=== PATIENT | female | born 1935 | race Caucasian/White ===

== ENCOUNTER 2017-08-22 13:19 | Inpatient (IN) | payer OTHER ==
[~2017-08-22] VITALS: Ht 170.2 cm; Wt 65.7 kg
[2017-08-22 16:20] LABS: BASOPHIL (%) 0.3 % (0-1); BASOPHIL COUNT 0.1 K/uL (0-0.1); EOSINOPHIL (%) 0.2 % (0-5); HEMATOCRIT 34.3 % (36.0-46.0); HEMOGLOBIN 11.2 G/DL (11.9-15.5); IMMATURE GRANULOCYTE (%) 1.2 % (0.0-0.7); LYMPHOCYTE (%) 6.4 % (15-42); LYMPHOCYTE COUNT 0.9 K/uL (1.0-2.8); MCH 29.9 PG (29.0-34.0); MCHC 32.7 G/DL (30.0-36.0); MCV 91.5 FL (83-99); MONOCYTE COUNT 0.9 K/uL (0-0.8); NEUTROPHIL (%) 85.9 % (45-76); NEUTROPHIL COUNT 12.6 K/uL (1.8-6.4); PLATELET COUNT 381 K/uL (156-360); RBC DIS.WIDTH-CV 13.2 % (11.8-14.6); RBC DIS.WIDTH-SD 45.1 % (39-53); RED BLOOD COUNT 3.75 M/uL (3.80-5.20); WHITE BLOOD COUNT 14.6 K/uL (4.1-10.2)
[2017-08-22 16:34] LABS: ALBUMIN 2.3 g/dL (3.2-4.8); CHLORIDE 102 mEq/L (99-109); POTASSIUM 4.1 mEq/L (3.7-5.4); SODIUM 136 mEq/L (136-147)
[2017-08-22 16:35] LABS: MAGNESIUM 1.9 mg/dL (1.3-2.7)
[2017-08-22 16:36] LABS: GLUCOSE 110 mg/dL (70-99); TOTAL PROTEIN 5.8 g/dL (6.4-8.3)
[2017-08-22 16:38] LABS: TOTAL BILIRUBIN 0.4 mg/dL (0.0-1.0)
[2017-08-22 16:40] LABS: ALKALINE PHOSPHATASE 83 IU/L (3-129); CREATININE 0.6 mg/dL (0.6-1.3); GFR ESTIMATE (CALCULATED) > 59 mL/min/
[2017-08-22 16:41] LABS: UREA NITROGEN (BUN) 14 mg/dL (9-23)
[2017-08-22 16:42] LABS: AST (GOT) 53 IU/L (2-34)
[2017-08-22 16:43] LABS: ALT (GPT) 25 IU/L (3-49); TROP-I INTERPRETATION NEGATIVE; TROPONIN-I < 0.01 ng/mL (0.0-0.30)
[2017-08-22 16:48] LABS: CK-MB 0.8 ng/mL (0.0-4.9)
[2017-08-22 17:00] LABS: APPEARANCE SL.HAZY ((CLEAR)); BILIRUBIN NEGATIVE; BLOOD SMALL; COLOR YELLOW ((YELLOW)); GLUCOSE (STRIP) NEGATIVE; KETONES NEGATIVE; LEUKOCYTES NEGATIVE; NITRITE NEGATIVE; PROTEIN (STRIP) NEGATIVE
[2017-08-22 17:20] LABS: EPITHELIAL CELLS RARE /HPF; RED BLOOD CELLS 20-30 /HPF (0-5); WHITE BLOOD CELLS TNTC /HPF (0-5)
[2017-08-22 17:21] LABS: BACTERIA 3+ /HPF; MUCUS NONE SEEN /LPF; UCUL ADDED? YES
[2017-08-22 17:25] LABS: CREATINE KINASE 22 IU/L (1-294)
[2017-08-22 17:28] LABS: CKMB RELATIVE INDEX 3.6 (0.0-3.9); TOTAL CK 22 IU/L (1-294)
[2017-08-22] MEDS ORDERED: EXCEDRIN EXTRA1 EACH PO (17:48)
[2017-08-22 18:25] LABS: INTER. NORMALIZED RATIO 1.2
[2017-08-22 18:27] LABS: PTT 27.2 SEC (25-37)
[2017-08-22 22:09] VITALS: BP 146/65
[2017-08-22 22:15] VITALS: BP 134/64
[2017-08-23 00:18] VITALS: BP 135/72
[2017-08-23 07:15] VITALS: BP 111/55
[2017-08-23 16:10] VITALS: BP 112/54
[2017-08-24 00:54] VITALS: BP 118/58
[2017-08-24 07:17] VITALS: BP 131/60
[2017-08-24 15:15] VITALS: BP 115/57
[2017-08-24 23:14] VITALS: BP 124/58
[2017-08-25 07:04] VITALS: BP 140/62
[2017-08-25 13:23] LABS: HEMATOCRIT 35.7 % (36.0-46.0); HEMOGLOBIN 11.7 G/DL (11.9-15.5); MCH 29.9 PG (29.0-34.0); MCHC 32.8 G/DL (30.0-36.0); MCV 91.3 FL (83-99); PLATELET COUNT 424 K/uL (156-360); RBC DIS.WIDTH-CV 13.6 % (11.8-14.6); RBC DIS.WIDTH-SD 45.8 % (39-53); RED BLOOD COUNT 3.91 M/uL (3.80-5.20); WHITE BLOOD COUNT 16.8 K/uL (4.1-10.2)
[2017-08-25 14:24] LABS: CHLORIDE 102 MEQ/L (99-109); CREATININE 0.6 MG/DL (0.6-1.3); GFR ESTIMATE (CALCULATED) > 59 mL/min/; GLUCOSE 134 mg/dL (70-99); POTASSIUM 3.5 MEQ/L (3.7-5.4); SODIUM 137 MEQ/L (136-147); UREA NITROGEN (BUN) 14 mg/dL (9-23)
[2017-08-25 15:29] VITALS: BP 108/55
[2017-08-25 23:55] VITALS: BP 135/62
[2017-08-26 06:15] LABS: HEMATOCRIT 34.1 % (36.0-46.0); MCH 29.3 PG (29.0-34.0); MCHC 32.3 G/DL (30.0-36.0); MCV 90.7 FL (83-99); PLATELET COUNT 379 K/uL (156-360); RBC DIS.WIDTH-CV 13.8 % (11.8-14.6); RED BLOOD COUNT 3.76 M/uL (3.80-5.20)
[2017-08-26 06:44] LABS: CHLORIDE 104 MEQ/L (99-109); CREATININE 0.5 MG/DL (0.6-1.3); GFR ESTIMATE (CALCULATED) > 59 mL/min/; GLUCOSE 106 mg/dL (70-99); SODIUM 139 MEQ/L (136-147); UREA NITROGEN (BUN) 15 mg/dL (9-23)
[2017-08-26 07:35] VITALS: BP 134/62
[2017-08-26 15:40] VITALS: BP 116/57
[2017-08-27 00:53] VITALS: BP 131/60
[2017-08-27 07:05] VITALS: BP 107/56
[2017-08-27 07:15] LABS: CHLORIDE 104 MEQ/L (99-109); CREATININE 0.5 MG/DL (0.6-1.3); GFR ESTIMATE (CALCULATED) > 59 mL/min/; GLUCOSE 105 mg/dL (70-99); SODIUM 141 MEQ/L (136-147); UREA NITROGEN (BUN) 14 mg/dL (9-23)
[2017-08-27 07:24] LABS: BASOPHIL (%) 0.4 % (0-1); BASOPHIL COUNT 0.1 K/uL (0-0.1); EOSINOPHIL (%) 0.3 % (0-5); HEMATOCRIT 33.1 % (36.0-46.0); HEMOGLOBIN 10.7 G/DL (11.9-15.5); IMMATURE GRANULOCYTE (%) 1.2 % (0.0-0.7); LYMPHOCYTE COUNT 1.2 K/uL (1.0-2.8); MCH 29.6 PG (29.0-34.0); MCHC 32.3 G/DL (30.0-36.0); MCV 91.7 FL (83-99); MONOCYTE (%) 6.2 % (3-12); MONOCYTE COUNT 0.9 K/uL (0-0.8); NEUTROPHIL (%) 83.9 % (45-76); NEUTROPHIL COUNT 12.3 K/uL (1.8-6.4); PLATELET COUNT 384 K/uL (156-360); RBC DIS.WIDTH-CV 13.6 % (11.8-14.6); RBC DIS.WIDTH-SD 46.2 % (39-53); RED BLOOD COUNT 3.61 M/uL (3.80-5.20); WHITE BLOOD COUNT 14.7 K/uL (4.1-10.2)
[2017-08-27] MEDS ORDERED: DOCUSATE SODIU100 MG PO (13:08)
[2017-08-27] MEDS ORDERED: LEVOFLOXACIN500 MG PO (13:08)
[2017-08-27 15:07] VITALS: BP 116/54
[2017-08-27 16:08] VITALS: BP 116/54
[2017-08-28] MEDS ORDERED: ATROVENT 00.5 MG/2.5 IH (10:50)
[2017-08-28] MEDS ORDERED: PREDNISONE20 MG PO (10:51)
[2017-08-28] MEDS ORDERED: LEVAQUIN500 MG PO (10:51)
== END 2017-08-27 16:25 | DRG 179 ==
LOC: EME 13:19 → 5EAST 19:45 → EDOF 19:45 → ENRESERV 19:46 → 5EAST 21:52
PROVIDERS: Emergency Medicine; Hospitalist; Physician Assistant
DX: J69.0 Pneumonitis due to inhalation of food and vomit (principal); N30.91 Cystitis, unspecified with hematuria; B95.4 Other streptococcus as the cause of diseases classified elsewhere; F01.50 Vascular dementia, unspecified severity, without behavioral disturbance, psychotic disturbance, mood disturbance, and anxiety; K59.00 Constipation, unspecified; Z66 Do not resuscitate
CPT/HCPCS: 70450; 71045; 72070; 72100; 72170; 80048; 80053; 81003; 82550; 82553; 83605; 83735; 84484; 85025; 85027; 85610; 85730; 87040; 87077; 87086; 92526 GN; 92610 GN; 93005; 97530 GO; 99281; 99285; G0515 GP; J0295; J1644; J1956; J7030; J7040; J7050

== ENCOUNTER 2017-08-28 07:47 | Inpatient (IN) | payer OTHER ==
[~2017-08-28] VITALS: Ht 162.6 cm; Wt 77.0 kg
[2017-08-28] VITALS (11 sets, daily range): BP systolic 101–132; BP diastolic 43–67
[~2017-08-28 07:47] MED LIST: DOCUSATE SODIU100 MG PO; EXCEDRIN EXTRA1 EACH PO; LEVOFLOXACIN500 MG PO
[2017-08-28 08:49] LABS: BASOPHIL (%) 0.2 % (0-1); EOSINOPHIL (%) 0 % (0-5); HEMATOCRIT 37.8 % (36.0-46.0); HEMOGLOBIN 12.1 G/DL (11.9-15.5); IMMATURE GRANULOCYTE (%) 1.8 % (0.0-0.7); LYMPHOCYTE (%) 4.5 % (15-42); LYMPHOCYTE COUNT 0.8 K/uL (1.0-2.8); MCH 29.7 PG (29.0-34.0); MCV 92.9 FL (83-99); MONOCYTE (%) 5.8 % (3-12); NEUTROPHIL (%) 87.7 % (45-76); NEUTROPHIL COUNT 15.7 K/uL (1.8-6.4); PLATELET COUNT 406 K/uL (156-360); RBC DIS.WIDTH-CV 13.8 % (11.8-14.6); RED BLOOD COUNT 4.07 M/uL (3.80-5.20); WHITE BLOOD COUNT 17.9 K/uL (4.1-10.2)
[2017-08-28 08:56] LABS: ALBUMIN 2.2 g/dL (3.2-4.8)
[2017-08-28 08:57] LABS: CHLORIDE 106 mEq/L (99-109); POTASSIUM 3.8 mEq/L (3.7-5.4); SODIUM 142 mEq/L (136-147)
[2017-08-28 08:59] LABS: GLUCOSE 152 mg/dL (70-99); TOTAL PROTEIN 5.7 g/dL (6.4-8.3)
[2017-08-28 09:02] LABS: ALKALINE PHOSPHATASE 91 IU/L (3-129)
[2017-08-28 09:03] LABS: CREATININE 0.7 mg/dL (0.6-1.3); GFR ESTIMATE (CALCULATED) > 59 mL/min/
[2017-08-28 09:04] LABS: AST (GOT) 51 IU/L (2-34); TOTAL BILIRUBIN 0.7 mg/dL (0.0-1.0); UREA NITROGEN (BUN) 17 mg/dL (9-23)
[2017-08-28 09:05] LABS: ALT (GPT) 28 IU/L (3-49)
[2017-08-28 09:09] LABS: TROP-I INTERPRETATION NEGATIVE
[2017-08-28 09:23] LABS: APPEARANCE CLOUDY ((CLEAR)); BILIRUBIN NEGATIVE; BLOOD MODERATE; COLOR AMBER ((YELLOW)); GLUCOSE (STRIP) NEGATIVE; KETONES NEGATIVE; LEUKOCYTES NEGATIVE; NITRITE NEGATIVE; PROTEIN (STRIP) 30; SPECIFIC GRAVITY 1.025 (1.000-1.030)
[2017-08-28 09:41] LABS: RED BLOOD CELLS 20-30 /HPF (0-5)
[2017-08-28 09:43] LABS: BACTERIA 2+ /HPF; EPITHELIAL CELLS 2+ /HPF; MUCUS NONE SEEN /LPF; UCUL ADDED? YES; WHITE BLOOD CELLS 0-5 /HPF (0-5)
[2017-08-28] MEDS ORDERED: ATROVENT 00.5 MG/2.5 IH (10:50)
[2017-08-28] MEDS ORDERED: PREDNISONE20 MG PO (10:51)
[2017-08-28] MEDS ORDERED: LEVAQUIN500 MG PO (10:51)
[2017-08-28 15:17] LABS: TROP-I INTERPRETATION INDETERMINATE; TROPONIN-I 0.47 ng/mL (0.0-0.30)
[2017-08-29] VITALS (15 sets, daily range): BP systolic 88–128; BP diastolic 37–72
[2017-08-29 05:47] LABS: BASOPHIL (%) 0.2 % (0-1); BASOPHIL COUNT 0.1 K/uL (0-0.1); EOSINOPHIL (%) 0 % (0-5); HEMATOCRIT 29.3 % (36.0-46.0); IMMATURE GRANULOCYTE (%) 1.1 % (0.0-0.7); LYMPHOCYTE (%) 6.4 % (15-42); LYMPHOCYTE COUNT 1.4 K/uL (1.0-2.8); MCH 29.2 PG (29.0-34.0); MCHC 31.7 G/DL (30.0-36.0); MCV 92.1 FL (83-99); MONOCYTE (%) 4.4 % (3-12); NEUTROPHIL (%) 87.9 % (45-76); NEUTROPHIL COUNT 19.5 K/uL (1.8-6.4); PLATELET COUNT 331 K/uL (156-360); RBC DIS.WIDTH-SD 47.4 % (39-53); WHITE BLOOD COUNT 22.2 K/uL (4.1-10.2)
[2017-08-29 05:49] LABS: HEMOGLOBIN 9.3 G/DL (11.9-15.5); RED BLOOD COUNT 3.18 M/uL (3.80-5.20)
[2017-08-29 06:14] LABS: CHLORIDE 110 MEQ/L (99-109); CREATININE 0.5 MG/DL (0.6-1.3); GFR ESTIMATE (CALCULATED) > 59 mL/min/; GLUCOSE 119 mg/dL (70-99); POTASSIUM 3.2 MEQ/L (3.7-5.4); SODIUM 143 MEQ/L (136-147); UREA NITROGEN (BUN) 11 mg/dL (9-23)
[2017-08-30 00:38] VITALS: BP 130/60
[2017-08-30 06:16] LABS: HEMATOCRIT 32.3 % (36.0-46.0); MCH 28.8 PG (29.0-34.0); MCV 93.1 FL (83-99); PLATELET COUNT 341 K/uL (156-360); RBC DIS.WIDTH-CV 13.8 % (11.8-14.6); RBC DIS.WIDTH-SD 47.1 % (39-53); RED BLOOD COUNT 3.47 M/uL (3.80-5.20); WHITE BLOOD COUNT 16.1 K/uL (4.1-10.2)
[2017-08-30 06:40] LABS: ALBUMIN 1.9 G/DL (3.2-4.8); ALKALINE PHOSPHATASE 64 IU/L (3-129); ALT (GPT) 21 IU/L (3-49); AST (GOT) 52 IU/L (2-34); CHLORIDE 112 MEQ/L (99-109); CREATININE 0.5 MG/DL (0.6-1.3); GFR ESTIMATE (CALCULATED) > 59 mL/min/; GLUCOSE 147 mg/dL (70-99); POTASSIUM 3.6 MEQ/L (3.7-5.4); SODIUM 145 MEQ/L (136-147); TOTAL BILIRUBIN 0.4 MG/DL (0.0-1.0); TOTAL PROTEIN 4.7 G/DL (6.4-8.3); UREA NITROGEN (BUN) 11 mg/dL (9-23)
[2017-08-30 06:50] VITALS: BP 123/72
[2017-08-30 15:13] VITALS: BP 134/70
[2017-08-30 23:08] VITALS: BP 148/67
[2017-08-31 05:59] LABS: HEMOGLOBIN 11.8 G/DL (11.9-15.5); MCH 29.2 PG (29.0-34.0); MCHC 31.9 G/DL (30.0-36.0); MCV 91.6 FL (83-99); RBC DIS.WIDTH-CV 14.3 % (11.8-14.6); RBC DIS.WIDTH-SD 47.8 % (39-53); RED BLOOD COUNT 4.04 M/uL (3.80-5.20); WHITE BLOOD COUNT 23.2 K/uL (4.1-10.2)
[2017-08-31 06:15] LABS: PLATELET COUNT 452 K/uL (156-360)
[2017-08-31 06:54] LABS: ALBUMIN 2.3 G/DL (3.2-4.8); ALKALINE PHOSPHATASE 70 IU/L (3-129); ALT (GPT) 27 IU/L (3-49); AST (GOT) 44 IU/L (2-34); CHLORIDE 112 MEQ/L (99-109); CREATININE 0.6 MG/DL (0.6-1.3); GFR ESTIMATE (CALCULATED) > 59 mL/min/; GLUCOSE 142 mg/dL (70-99); POTASSIUM 3.9 MEQ/L (3.7-5.4); SODIUM 146 MEQ/L (136-147); TOTAL BILIRUBIN 0.4 MG/DL (0.0-1.0); UREA NITROGEN (BUN) 15 mg/dL (9-23)
[2017-08-31 07:13] LABS: TOTAL PROTEIN 5.5 G/DL (6.4-8.3)
[2017-08-31 07:48] VITALS: BP 137/73
[2017-08-31 16:40] VITALS: BP 121/75
[2017-08-31 19:53] LABS: SITE LR
[2017-08-31 19:54] LABS: CARBOXY HGB 1.3 % (0-5); COMMENTS - BLOOD GASES C+A+; DEVICE HFNC; O2 FLOW 15 L/MIN; O2 SATURATION (CALCULATED) 93.4 % (95-99); PCO2 36 mm Hg (35-45); PO2 61 mm Hg (80-100); TOTAL RESP RATE 26 resp/min; pH 7.41 (7.35-7.45)
[2017-08-31 19:55] LABS: BASE EXCESS -1.4 mEq/L (-3 to +3); BICARBONATE 22.8 mEq/L (22-26); METHEMOGLOBIN 0.8 % (0-1.5)
[2017-08-31 23:49] VITALS: BP 129/86
[2017-09-01 07:36] VITALS: BP 155/68
[2017-09-01 08:32] LABS: HEMATOCRIT 35.5 % (36.0-46.0); HEMOGLOBIN 11.4 G/DL (11.9-15.5); MCH 29.2 PG (29.0-34.0); MCHC 32.1 G/DL (30.0-36.0); PLATELET COUNT 372 K/uL (156-360); RBC DIS.WIDTH-CV 14.1 % (11.8-14.6); RBC DIS.WIDTH-SD 46.8 % (39-53)
[2017-09-01 09:07] LABS: ALBUMIN 2.1 G/DL (3.2-4.8); ALKALINE PHOSPHATASE 62 IU/L (3-129); ALT (GPT) 18 IU/L (3-49); CHLORIDE 111 MEQ/L (99-109); CREATININE 0.6 MG/DL (0.6-1.3); GFR ESTIMATE (CALCULATED) > 59 mL/min/; GLUCOSE 150 mg/dL (70-99); POTASSIUM 3.2 MEQ/L (3.7-5.4); SODIUM 146 MEQ/L (136-147); TOTAL PROTEIN 4.9 G/DL (6.4-8.3); UREA NITROGEN (BUN) 16 mg/dL (9-23)
[2017-09-01 09:08] LABS: AST (GOT) 24 IU/L (2-34); TOTAL BILIRUBIN 0.5 MG/DL (0.0-1.0)
[2017-09-01 12:57] VITALS: BP 125/72
[2017-09-01 16:16] VITALS: BP 141/86
[2017-09-01 17:27] VITALS: BP 134/69
[2017-09-01 19:49] VITALS: BP 134/73
[2017-09-01 23:36] VITALS: BP 160/74
[2017-09-02 04:05] VITALS: BP 140/82
[2017-09-02 07:15] VITALS: BP 132/77
[2017-09-02 11:51] VITALS: BP 180/93
[2017-09-02] MEDS ORDERED: AUGMENTIN875 MG PO (14:23)
[2017-09-02] MEDS ORDERED: ATIVAN INTE2 MG/1 ML PO (14:24)
[2017-09-02] MEDS ORDERED: TRANSDERM-SCOP1 EACH TD (14:24)
[2017-09-02] MEDS ORDERED: MORPHINE CON20 MG/M1 PO (14:24)
[2017-09-02 15:25] VITALS: BP 138/68
== END 2017-09-02 17:53 | disposition hospice, home (50) | DRG 871 ==
LOC: EME 07:47 → ENRESERV 11:50 → EDOF 11:50 → CANRESERV 11:50 → 4WEST 11:50 → 5EAST 11:50 → ENRESERV 13:31 → 4WEST 15:52 → ENRESERV 08-29 09:50 → 4WEST 08-29 09:56 → ENRESERV 08-29 10:01 → 5EAST 08-29 13:47
PROVIDERS: Emergency Medicine; Family Medicine; Internal Medicine; Specialist
DX: A41.9 Sepsis, unspecified organism (principal); J69.0 Pneumonitis due to inhalation of food and vomit; J96.01 Acute respiratory failure with hypoxia; N39.0 Urinary tract infection, site not specified; R65.21 Severe sepsis with septic shock; Z51.5 Encounter for palliative care; Z66 Do not resuscitate; F01.50 Vascular dementia, unspecified severity, without behavioral disturbance, psychotic disturbance, mood disturbance, and anxiety; K59.09 Other constipation; E86.0 Dehydration; Z90.49 Acquired absence of other specified parts of digestive tract; Z87.440 Personal history of urinary (tract) infections
CPT/HCPCS: 36600; 71045; 80048; 80053; 80202; 81003; 82948; 83605; 83880; 84484; 85025; 85027; 87040; 87086; 87641; 87801; 92526 GN; 92610 GN; 93005; 94640; 94799; 99281; 99285; J1644; J2270; J2543; J2930; J3370; J3480; J7030; J7040; J7050; S0028